=== PATIENT | male | born 1990 | race Caucasian/White ===

== ENCOUNTER 2019-03-07 13:22 | Emergency (ER) | payer MEDICAID ==
[~2019-03-07] VITALS: Ht 172.7 cm; Wt 62.0 kg
[~2019-03-07 13:22] MED LIST: ALBU8.5H8 IH; FLUT16SP26 BOTHNARES; GUAI120018 PO
[2019-03-07 13:44] VITALS: BP 113/78
[2019-03-07] MEDS ORDERED: ibuprofen 200mg tablet PO ONE (14:30)
[2019-03-07] MEDS ORDERED: AMOX-580 PO (14:36)
== END 2019-03-07 14:43 | disposition home or self-care (01) ==
LOC: ER 13:23
DX: H66.91 Otitis media, unspecified, right ear (principal); F12.90 Cannabis use, unspecified, uncomplicated; Z79.899 Other long term (current) drug therapy; Z87.891 Personal history of nicotine dependence
CPT/HCPCS: 99283